=== PATIENT | male | born 1975 | race Caucasian/White ===

== ENCOUNTER 2024-08-28 22:37 | Emergency (ER) | payer BC, SELFPAY ==
[2024-08-28 22:39] VITALS: BP 140/87; PULSE 76; TEMP 36.5; O2SAT 90; BMI 28.5
--- NOTE | 2024-08-28 22:46 | ED.AMS1 ---
HPI - Altered Mental Status General Chief Complaint: Altered Mental Status Stated Complaint: INTOXICATION Time Seen by Provider: 08/28/24 22:38 Source: unable to obtain Source comment: Brought in by EMS intoxicated Mode of arrival: ambulance Limitations: other Limitations comment: intoxicated History of Present Illness HPI narrative: patient at a wedding drinking for past 5 hours. Reportedly sat down at table and began vomiting and passed out. Enroute via Squad woke up and ask where he was and vomited again. Given dose of zofran. Now arrives somnolent. Does wake up and makes appropriate response and then falls sleep again. Woke up this last time stating he needed to pee. Related Data Allergies Allergy/AdvReac Type Severity Reaction Status Date / Time No Known Drug Allergies Allergy Verified 08/28/24 22:45 Review of Systems ROS Status of ROS 10 or more systems reviewed and unremarkable except as noted in history and below Exam Constitutional Vital Signs, click to edit/add: Last Vital Signs Temp 97.7 F 08/28/24 22:39 Pulse 76 08/28/24 22:39 Resp 20 08/28/24 22:39 BP 140/87 08/28/24 22:39 Pulse Ox 90 L 08/28/24 22:39 O2 Del Method Room Air 08/28/24 22:39 Common normals: no apparent distress Exam limitations: altered mental status General appearance: cooperative and odor of alcohol detected HENMT Common normals: normocephalic and head/scalp atraumatic Eye Common normals: conjunctivae normal Respiratory Common normals: normal respiratory effort, no retractions, no use of accessory muscles and clear to auscultation bilaterally Cardio Common normals: regular rate, regular rhythm, S1 normal heart sound and S2 normal heart sound GI Common normals: Normal to inspection, nondistended, normoactive bowel sounds present, soft to palpation and non-tender Extremity Common normals: normal to inspection and full ROM Neuro Sensorium/orientation: lethargic and somnolent Course Vital Signs Vital signs: Vital Signs Temperature 97.7 F 08/28/24 22:39 Pulse Rate 76 08/28/24 22:39 Respiratory Rate 20 08/28/24 22:39 Blood Pressure 140/87 08/28/24 22:39 Pulse Oximetry 90 L 08/28/24 22:39 Oxygen Delivery Method Room Air 08/28/24 22:39 Temperature 97.7 F 08/28/24 22:39 Pulse Rate 76 08/28/24 22:39 Respiratory Rate 20 08/28/24 22:39 Blood Pressure 140/87 08/28/24 22:39 Pulse Oximetry 90 L 08/28/24 22:39 Oxygen Delivery Method Room Air 08/28/24 22:39 MDM - Altered Mental Status MDM Narrative Medical decision making narrative: arrives to ER from wedding part intoxicated. patient hydrated with NS. etoh level 193. he is now awake and talking to visitors. Stating he is ready to go home. will have him get up and ambulate as part of evaluation Lab Data Labs: Lab Results 08/28/24 Range/Units 22:54 WBC 11.3 H (4.0-11.0) 10^3/uL RBC 5.12 (4.70-6.10) 10^6/uL Hgb 15.3 (14.0-18.0) g/dL Hct 46.3 (42.0-54.0) % MCV 90.4 (80.0-94.0) fL MCH 29.9 (25.9-34.0) pg MCHC 33.0 (29.9-35.2) g/dL RDW 13.0 (11.0-15.0) % Plt Count 238 (150-450) 10^3/uL MPV 11.3 (9.5-13.5) fL Neut % (Auto) 66.0 (43.0-75.0) % Lymph % (Auto) 22.2 (20.5-60.0) % [place] % (Auto) 7.5 (1.7-12.0) % Eos % (Auto) 2.6 (0.9-7.0) % Baso % (Auto) 0.9 (0.2-2.0) % Neut # (Auto) 7.4 H (1.4-6.5) 10^3/uL Lymph # (Auto) 2.5 (1.2-3.8) 10^3/uL [place] # (Auto) 0.9 H (0.3-0.8) 10^3/uL Eos # (Auto) 0.3 (0.0-0.7) 10^3/uL Baso # (Auto) 0.1 (0.0-0.1) 10^3/uL Abs Immat Gran (auto) 0.09 H (0.00-0.03) 10^3/uL Imm/Tot Granulo (auto) 0.8 H (0.0-0.5) % Sodium 140 (136-145) mmol/L Potassium 3.6 (3.5-5.1) mmol/L Chloride 107 (98-107) mmol/L Carbon Dioxide 19.8 L (21.0-32.0) mmol/L Anion Gap 16.8 BUN 18.0 (7.0-18.0) mg/dL Creatinine 1.22 (0.70-1.30) mg/dL Est GFR ( Amer) >60 (>=60 mL/min/1.73m^2) Est GFR (Non-Af Amer) >60 (>=60 mL/min/1.73m^2) BUN/Creatinine Ratio 14.8 Glucose 152 H (74-106) mg/dL Calcium 8.3 L (8.5-10.1) mg/dL Ethanol Quant 193 mg/dL Discharge Plan Discharge Chief Complaint: Altered Mental Status Clinical Impression: Alcoholic intoxication Patient Disposition: Home, Self-Care Print Language: Swedish Instructions: Alcohol Intoxication (ED) Referrals: CATHIE ISRAEL [Primary Care Provider] - 1 week
--- NOTE | 2024-08-28 22:47 | PC.NURSE ---
patient arrives via ems for c/o intoxication. patient was at wedding outpatient receptionist and drank unknown amounts of liquor since 1729-including shots and mixed drinks. patient sat down at table and passed out and began vomiting. patient awakens when stimulated and is pleasant.
[2024-08-28 23:01] LABS: Basophils Absolute Auto 0.1 10^3/uL (0.0-0.1); Basophils Percent Auto 0.9 % (0.2-2.0); Eosinophils Absolute Auto 0.3 10^3/uL (0.0-0.7); Eosinophils Percent Auto 2.6 % (0.9-7.0); Hematocrit 46.3 % (42.0-54.0); Hemoglobin 15.3 g/dL (14.0-18.0); Immature Granulocytes Abs Auto 0.09 10^3/uL (0.00-0.03); Immature Granulocytes Pct Auto 0.8 % (0.0-0.5); Lymphocytes Absolute Auto 2.5 10^3/uL (1.2-3.8); Lymphocytes Percent Auto 22.2 % (20.5-60.0); Mean Corpuscular Hemoglobin 29.9 pg (25.9-34.0); Mean Corpuscular Volume 90.4 fL (80.0-94.0); Mean Platelet Volume 11.3 fL (9.5-13.5); Monocytes Absolute Auto 0.9 10^3/uL (0.3-0.8); Monocytes Percent Auto 7.5 % (1.7-12.0); Neutrophils Absolute Auto 7.4 10^3/uL (1.4-6.5); Platelet Count 238 10^3/uL (150-450); Red Blood Count 5.12 10^6/uL (4.70-6.10); White Blood Count 11.3 10^3/uL (4.0-11.0)
[2024-08-28] MEDS: 0.9 % SODIUM CHLORIDE 1,000 ML 999 ML IV (23:02)
[2024-08-28 23:10] LABS: Anion Gap 16.8; BUN Creatinine Ratio 14.8; Calcium 8.3 mg/dL (8.5-10.1); Carbon Dioxide 19.8 mmol/L (21.0-32.0); Chloride 107 mmol/L (98-107); Estimated GFR (African America >60 (>=60 mL/min/1.73m^2); Estimated GFR (Non-African Ame >60 (>=60 mL/min/1.73m^2); Ethanol 193 mg/dL; Glucose 152 mg/dL (74-106); Potassium 3.6 mmol/L (3.5-5.1); Sodium 140 mmol/L (136-145)
--- NOTE | 2024-08-29 00:40 | ECG_ITS ---
[facility] Test Date: 2024-08-28 Pat Name: EJ SANCHEZ Department: Room: - Gender: Male Speech Instructor: : [id number] Requested By: [id number] Order Number: [id number] Reading MD: PILAR LITTLEJOHN Measurements Intervals [place] Rate: 76 P: 56 VA: 168 QRS: 57 QRSD: 84 T: 23 QT: 382 QTc: 412 Interpretive Statements 1100 Sinus rhythm 9110 normal ECG Compared to ECG 01/02/2023 11:20:16 No significant changes Electronically Signed On 08-29-2024 20:55:17 EDT by PILAR LITTLEJOHN
== END 2024-08-29 00:10 | disposition home or self-care (01) ==
PROVIDERS: Emergency Provider Internal Medicine; PCP Nurse Practitioner Family
DX: F10.129 Alcohol abuse with intoxication, unspecified (principal); Y90.6 Blood alcohol level of 120-199 mg/100 ml
CPT/HCPCS: 36415; 80048; 80320; 85025; 93005; 96360; 99284